=== PATIENT | female | born 1935 | race Two or more races ===

== ENCOUNTER 2018-04-26 16:48 | Inpatient (IN) | payer OTHER ==
[~2018-04-26] VITALS: Ht 162.6 cm; Wt 127.0 kg
[2018-04-26] MEDS ORDERED: RANITIDINE HCL150 M1 (17:57)
[2018-04-26] MEDS ORDERED: BACLOFEN20 MG (17:58)
[2018-04-26] MEDS ORDERED: AMANTADINE100 MG (17:58)
[2018-04-26] MEDS ORDERED: COPAXONE20 MG/1 ML (17:58)
[2018-04-26] MEDS ORDERED: LISINOPRIL5 MG (17:58)
[2018-04-26] MEDS ORDERED: FORTAMET500 MG (17:59)
[2018-04-26] MEDS ORDERED: GLYBURIDE MICR1.5 MG (17:59)
[2018-04-26] MEDS ORDERED: FOLIC ACID1 MG (17:59)
[2018-04-26] MEDS ORDERED: CELEXA10 MG (18:00)
[2018-04-26] MEDS ORDERED: RESTORIL30 MG (18:00)
[2018-04-26] MEDS ORDERED: DIURETIC SOFTGE50 MG (18:00)
[2018-04-26] MEDS ORDERED: VISTARIL25 MG (18:01)
== END 2018-05-01 20:19 | disposition home or self-care (01) | DRG 280 ==
LOC: ER 16:48 → ICU-2 04-27 15:28 → SEC-K 04-27 15:28 → MEDI 04-27 15:28 → ICU-2 04-27 17:07 → SEC-K 04-30 13:46 → MEDI 04-30 16:13
PROC: 5A09457 Assistance with Respiratory Ventilation, 24-96 Consecutive Hours, Continuous Positive Airway Pressure (ICD-10-PCS; principal; 2018-04-27)
PROC: B246ZZZ Ultrasonography of Right and Left Heart (ICD-10-PCS; 2018-04-27)
PROC: B020ZZZ Computerized Tomography (CT Scan) of Brain (ICD-10-PCS; 2018-04-28)
PROC: BG44ZZZ Ultrasonography of Thyroid Gland (ICD-10-PCS; 2018-04-30)
PROC: 4A12X4Z Monitoring of Cardiac Electrical Activity, External Approach (ICD-10-PCS; 2018-04-30)
DX: I21.4 Non-ST elevation (NSTEMI) myocardial infarction (principal); G93.41 Metabolic encephalopathy; E87.1 Hypo-osmolality and hyponatremia; I24.8 Other forms of acute ischemic heart disease; E86.0 Dehydration; G35 Multiple sclerosis; I10 Essential (primary) hypertension; E11.9 Type 2 diabetes mellitus without complications; E03.8 Other specified hypothyroidism; G47.33 Obstructive sleep apnea (adult) (pediatric); E66.8 Other obesity; I44.7 Left bundle-branch block, unspecified; R09.02 Hypoxemia

== ENCOUNTER 2018-06-18 17:29 | Emergency (ER) | payer OTHER ==
[~2018-06-18] VITALS: Ht 165.1 cm; Wt 74.8 kg
[~2018-06-18 17:29] MED LIST: AMANTADINE100 MG; BACLOFEN20 MG; CELEXA10 MG; COPAXONE20 MG/1 ML; DIURETIC SOFTGE50 MG; FOLIC ACID1 MG; FORTAMET500 MG; GLYBURIDE MICR1.5 MG; LISINOPRIL5 MG; RANITIDINE HCL150 M1; RESTORIL30 MG; VISTARIL25 MG
[2018-06-18] MEDS ORDERED: SYNTHROID50 MCG (19:20)
[2018-06-18] MEDS ORDERED: PEPCID40 MG (19:21)
[2018-06-18] MEDS ORDERED: DYAZIDE 37.5-21 EACH (19:22)
== END 2018-06-18 22:11 | disposition home or self-care (01) ==
LOC: ER 17:29
DX: R41.0 Disorientation, unspecified (principal); N39.0 Urinary tract infection, site not specified

== ENCOUNTER 2018-07-01 08:47 | Outpatient (CLI) | payer OTHER ==
[~2018-07-01 08:47] MED LIST changes: +DYAZIDE 37.5-21 EACH; +PEPCID40 MG; +SYNTHROID50 MCG
== END 2018-07-01 09:03 | disposition home or self-care (01) ==
LOC: RAD 08:47 → MRI 09:15
DX: R10.84 Generalized abdominal pain (principal); G35 Multiple sclerosis; N76.0 Acute vaginitis
CPT/HCPCS: 70552; 76700; 76830; A9575

== ENCOUNTER 2023-08-02 09:34 | Emergency (ER) | payer OTHER ==
[~2023-08-02] VITALS: Ht 162.6 cm; Wt 86.2 kg
[2023-08-02] MEDS ORDERED: 0.9 % SODIUM CHLORIDE 1,000 ML IV SCH (10:15)
[2023-08-02 10:51] LABS: HEMATOCRIT 33.6 % (36.0-45.00); HEMOGLOBIN 11.1 g/dL (12.0-15.00); MEAN CELL VOLUME 86.7 fL (80.00-100.00); MEAN CORPUSCULAR HEMOGLOBIN 28.5 pg (27.00-32.0); MEAN CORPUSCULAR HGB CONC 32.9 g/dl (32.0-36.0); PLATELET COUNT 279 K/uL (150-450); RED BLOOD COUNT 3.88 M/uL (4.00-6.00); RED CELL DISTRIBUTION WIDTH 15.8 % (11.5-14.5)
[2023-08-02 11:02] LABS: ABG PH 7.418 (7.35-7.45)
[2023-08-02 11:03] LABS: ABG PO2 118.2 mmHg (80-100); BASE EXCESS 4.2 mmol/l; BICARBONATE 29.6 mmol/l (23-25); SaO2 98.7 %; Tco2 31.1 mmol/l; o2 21 %
[2023-08-02 11:04] LABS: allen test SATISFACTORY; puncture site RADIAL RIGHT
[2023-08-02 11:15] LABS: CREATININE SERUM 0.43 mg/dL (0.55-1.02); GFR 139.55; POTASSIUM 3.35 mEq/L (3.5-5.1)
[2023-08-02 11:34] LABS: PH,URINE 5.5 (5.0-8.0); URINE APPEARANCE Cloudy; URINE BILIRRUBIN Negative (NEGATIVE); URINE BLOOD Small; URINE COLOR Dark Yellow; URINE LEUKOCYTE Negative; URINE NITRATE Negative; URINE UROBILINOGEN 0.2 E.U./dl
[2023-08-02 11:35] LABS: URINE BACTERIA 699.2 uL (0.0-1933); URINE EPITHELIAL CELLS 42.5 uL (0.0-38.8); URINE RBC 65.1 uL (0.0-20.8); URINE WBC 12.3 uL (0.0-23.2)
[2023-08-02 12:01] LABS: URINE CRYSTALS FEW /HPF; URINE GLUCOSE 250 MG/DL (NEGATIVE); URINE PROTEIN 300 (NEGATIVE)
== END 2023-08-02 12:44 | disposition home or self-care (01) ==
LOC: ER 09:34
PROVIDERS: Emergency Medicine
DX: I50.9 Heart failure, unspecified (principal); I11.9 Hypertensive heart disease without heart failure; E03.9 Hypothyroidism, unspecified; Z74.01 Bed confinement status
CPT/HCPCS: 51702; 71045; 82803; 93005; 96365; 96366; 99283; J7030